=== PATIENT | female | born 2000 | race Caucasian/White ===

== ENCOUNTER 2019-04-22 16:28 | Emergency (ER) | payer OTHER ==
[~2019-04-22] VITALS: Ht 165.1 cm; Wt 47.6 kg
[~2019-04-22 16:28] MED LIST: ACETAMINOP160 MG/12; AMOXICILLIN500 M1 PO; DEPAKOTE ER500 MG PO; IBUPROFEN100 MG/52; NORCO 5-325 TA1 EACH PO; OXYCODONE H5 MG/5 ML; WAL-DRYL25 MG; ZANTAC 150MG T150 MG PO
[2019-04-22] MEDS ORDERED: BIRTH CONTROL (16:38)
[2019-04-22 16:51] LABS: ABSOLUTE BASOPHILS 0.1 thou/uL (0.0-0.2); ABSOLUTE EOSINOPHILS 0.2 thou/uL (0.0-0.7); ABSOLUTE LYMPHOCYTES 2.7 thou/uL (0.8-5.3); ABSOLUTE MONOCYTES 1.3 thou/uL (0.0-1.2); ABSOLUTE NEUTROPHILS 8.5 thou/uL (1.6-8.1); BASOPHILS 0.4 %; EOSINOPHILS 1.2 %; HEMATOCRIT 43.1 % (37.0-47.0); HEMOGLOBIN 14.8 gm/dL (12.0-15.0); LYMPHOCYTES 21.2 %; MCH 31.8 pg (26.0-34.0); MCHC 34.2 g/dL (28.0-37.0); MONOCYTES 10.1 %; MPV 8.2 fl. (7.2-11.1); NUCLEATED RBCS 0 /100WBC; PLATELET COUNT* 326 thou/uL (150-400); POLYS 67.1 %; RBC 4.64 mil/uL (4.20-5.00); RDW-CV 12.9 % (10.5-14.5); WBC 12.7 thou/uL (4.0-11.0)
[2019-04-22 16:59] LABS: ANION GAP 15 mmol/L (7-16); BUN 7 mg/dL (7-18); CALCIUM 8.5 mg/dL (8.5-10.1); CHLORIDE 103 mmol/L (98-107); CO2 21 mmol/L (21-32); CREATININE 0.8 mg/dL (0.6-1.3); GLUCOSE 83 mg/dL (70-99); POTASSIUM 3.6 mmol/L (3.5-5.1); SODIUM 139 mmol/L (136-145)
[2019-04-22 17:00] LABS: APTT 27.1 Seconds (25.0-31.3); PROTIME 10.2 Seconds (9.20-11.50)
[2019-04-22 17:14] LABS: ALKALINE PHOSPHATASE 57 U/L (46-116); LIPASE 113 U/L (73-393); NT-PRO BRAIN NAT PEPTIDE 31 pg/mL (<300); SGOT 16 U/L (15-37); SGPT 25 U/L (30-65); TOTAL BILIRUBIN 0.3 mg/dL (<0.1-1.0); TROPONIN-I LEVEL <0.06 ng/mL (<0.06)
[2019-04-22 17:21] LABS: MONOTEST (MONOSPOT)* NEGATIVE (Negative)
[2019-04-22] MEDS ORDERED: PREDNISONE 20 M20 MG PO (17:59)
[2019-04-22 18:09] VITALS: BP 103/65
--- NOTE | 2019-04-23 18:00 | EKG ---
[place] [address] ELECTROCARDIOGRAM REPORT Name: JOHNIE GARCIA Room: [facility]#: [id number] Admission: 04/22/19 Attend Phys: Discharge: 04/22/19 Date of : [birth year] Report #: [id number] THIS REPORT FOR: //name// [facility] ED Test Date: 2019-04-22 Test Time: 16:36:00 Pat Name: JOHNIE GARCIA Department: Room: Gender: F [employer]: JUANITA : 2000 Requested By: Todd Beach Order Number: [id number] MD: Matteo Choi Measurements Intervals [place] Rate: 80 P: 83 ND: 141 QRS: 85 QRSD: 92 T: 19 QT: 396 QTc: 457 Interpretive Statements Sinus arrhythmia Compared to ECG 04/01/2017 10:52:57 No significant changes Electronically Signed On 04-23-2019 18:00:40 CDT by Matteo Choi [email or web address] <ELECTRONICALLY SIGNED> By: Richelle Choi MD, [facility] 04/23/19 1800 1636 1636 Richelle Choi MD, FACC /EPI
--- NOTE | 2019-04-23 18:00 | EKG ---
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
== END 2019-04-22 18:09 | disposition home or self-care (01) ==
LOC: M.ERS 16:28
PROVIDERS: Nurse Practitioner Psychiatric/Mental Health
DX: R07.89 Other chest pain (principal); F14.90 Cocaine use, unspecified, uncomplicated; R05 Cough; F31.9 Bipolar disorder, unspecified; K21.9 Gastro-esophageal reflux disease without esophagitis; Z98.890 Other specified postprocedural states; Z88.6 Allergy status to analgesic agent

== ENCOUNTER 2019-09-30 15:13 | Emergency (ER) | payer OTHER ==
[~2019-09-30] VITALS: Ht 152.4 cm; Wt 52.2 kg
[~2019-09-30 15:13] MED LIST changes: +BIRTH CONTROL; +PREDNISONE 20 M20 MG PO
[2019-09-30 15:42] LABS: ABSOLUTE BASOPHILS 0.1 thou/uL (0.0-0.2); ABSOLUTE EOSINOPHILS 0.3 thou/uL (0.0-0.7); ABSOLUTE LYMPHOCYTES 2.2 thou/uL (0.8-5.3); ABSOLUTE MONOCYTES 0.5 thou/uL (0.0-1.2); ABSOLUTE NEUTROPHILS 2.8 thou/uL (1.6-8.1); HEMATOCRIT 40.8 % (37.0-47.0); HEMOGLOBIN 13.9 gm/dL (12.0-15.0); LYMPHOCYTES 37.7 %; MCH 31.1 pg (26.0-34.0); MCV 91.5 fL (80.0-100.0); MONOCYTES 7.9 %; NUCLEATED RBCS 0 /100WBC; PLATELET COUNT* 322 thou/uL (150-400); POLYS 48.4 %; RBC 4.46 mil/uL (4.20-5.00); RDW-CV 13.4 % (10.5-14.5); WBC 5.9 thou/uL (4.0-11.0)
[2019-09-30 16:00] LABS: CALCIUM 7.7 mg/dL (8.5-10.1); CREATININE 0.6 mg/dL (0.6-1.3); POTASSIUM 3.9 mmol/L (3.5-5.1)
[2019-09-30 16:05] LABS: ALBUMIN 3.4 g/dL (3.4-5.0); TOTAL BILIRUBIN 0.2 mg/dL (<0.1-1.0); TOTAL PROTEIN 7.4 g/dL (6.4-8.2)
[2019-09-30] MEDS ORDERED: MOBIC7.5 MG PO (16:23)
[2019-09-30] MEDS ORDERED: FLEXERIL PO (16:23)
[2019-09-30 16:45] VITALS: BP 114/60
--- NOTE | 2019-10-01 11:16 | EKG ---
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[facility] [place] : 2000 Requested By: Trenton Pineda Order Number: [id number] MD: Hunter Thurman Measurements Intervals [place] Rate: 67 P: 52 VT: 143 QRS: 81 QRSD: 83 T: 48 QT: 416 QTc: 439 Interpretive Statements Sinus rhythm Compared to ECG 04/22/2019 17:46:21 No significant changes Electronically Signed On 10-01-2019 11:15:29 [employer] by Hunter Thurman [email or web address] <ELECTRONICALLY SIGNED> By: Hunter Thurman MD, [facility] 10/01/19 1115 1519 1519 Hunter Thurman MD, FACC /EPI
== END 2019-09-30 16:46 | disposition home or self-care (01) ==
LOC: M.ERS 15:13
PROVIDERS: Family Medicine
DX: R07.89 Other chest pain (principal); K21.9 Gastro-esophageal reflux disease without esophagitis; F31.9 Bipolar disorder, unspecified; Z90.89 Acquired absence of other organs; Z88.8 Allergy status to other drugs, medicaments and biological substances